=== PATIENT | male | born 1945 | race Caucasian/White ===

== ENCOUNTER 2024-05-14 07:55 | Emergency (ER) | payer OTHER ==
[~2024-05-14] VITALS: Ht 182.9 cm; Wt 152.0 kg
[2024-05-14 10:12] VITALS: PULSE 95; RESP 18; TEMP 98.7; O2SAT 98
== END 2024-05-14 10:22 | disposition home or self-care (01) ==
LOC: FSED 08:01
DX: R33.9 Retention of urine, unspecified (principal); N40.0 Benign prostatic hyperplasia without lower urinary tract symptoms; I10 Essential (primary) hypertension; E11.9 Type 2 diabetes mellitus without complications; E78.5 Hyperlipidemia, unspecified; K21.9 Gastro-esophageal reflux disease without esophagitis; Z96.642 Presence of left artificial hip joint
CPT/HCPCS: 51700; 81003; 99283